=== PATIENT | female | born 1945 | race Caucasian/White ===

== ENCOUNTER 2017-09-23 12:39 | Day surgery (SDC) | payer OTHER ==
[~2017-09-23] VITALS: Ht 152.4 cm; Wt 68.5 kg
[2017-09-23 13:23] VITALS: Ht 152.4 cm; Wt 68.5 kg
[2017-09-23] MEDS ORDERED: HTN MED PO (13:29)
[2017-09-23 13:43] VITALS: BP 136/70; PULSE 78; RESP 24
[2017-09-23] MEDS ORDERED: PROPOFOL 20 ML ONE (13:44)
[2017-09-23] MEDS ORDERED: CEFAZOLIN 1 GM/50 ML (PMX) 50 ML IVPB ONE (13:44)
--- NOTE | 2017-09-23 14:02 | OPPN ---
Date/Time of Note Date/Time of Note DATE: 09/23/17 TIME: 14:00 Colonoscopy was normal advise follow-up with primary MD repeat colonoscopy 10 years Operative Report Preoperative Diagnosis constipation and change in bowel habit Postoperative Diagnosis Normal: Colonoscopy Operation/Procedure Performed Colonoscopy Surgeon see signature line surveyor instrument assistant Dr. sullivan Second assist: GLORIA MCCLENDON MD Anesthesia: MAC Estimated blood loss: none Transfusion Required none Specimen None Grafts/Implants none Complications none DAINA BUSTAMANTE MD Sep 23, 2017 14:02
--- NOTE | 2017-09-23 14:02 | OPPN ---
Date/Time of Note Date/Time of Note DATE: 09/23/17 TIME: 14:00 Colonoscopy was normal advise follow-up with primary MD repeat colonoscopy 10 years Operative Report Preoperative Diagnosis constipation and change in bowel habit Postoperative Diagnosis Normal: Colonoscopy Operation/Procedure Performed Colonoscopy Surgeon see signature line assistant restaurant general manager Dr. sullivan Second assist: GLORIA MCCLENDON MD Anesthesia: MAC Estimated blood loss: none Transfusion Required none Specimen None Grafts/Implants none Complications none DAINA BUSTAMANTE MD Sep 23, 2017 14:02
[2017-09-23 14:29] VITALS: BP 113/61; PULSE 61; RESP 17
--- NOTE | 2017-09-24 06:52 | GILP ---
DATE OF PROCEDURE: PREOPERATIVE DIAGNOSIS: Change in bowel habits, constipation. PROCEDURE DONE: Colonoscopy with anesthesia. ANESTHESIOLOGIST: . POSTOPERATIVE DIAGNOSIS: Normal colonoscopy. DESCRIPTION OF PROCEDURE: After obtaining informed consent, she was sedated, monitored by the anesthesiologist. Rectal exam was done which was normal. Advanced a pediatric Olympus video colonoscope all the way to cecum. Ileocecal valve, appendiceal opening identified. Cecum, ascending colon, transverse colon , descending colon, sigmoid colon, rectum normal. Upon removal of scope, patient had no complication. PLAN: Will be to observe, follow with primary MD. Repeat colonoscopy in 10 years and yearly occult blood. Dictated By: DAINA BEDOYA Conf#: [id number] DID#: [id number]
== END 2017-09-24 08:28 | disposition home or self-care (01) ==
LOC: GIL 12:39
PROVIDERS: ATTEND Internal Medicine
DX: R19.4 Change in bowel habit (principal); I10 Essential (primary) hypertension
CPT/HCPCS: 45378; J0690; Z7610